=== PATIENT | female | born 1955 | race Caucasian/White ===

== ENCOUNTER → 2017-06-26 | Outpatient (CLI) | payer BC ==
[~2017-06-26] VITALS: Ht 162.6 cm; Wt 113.2 kg
[~2017-06-26] MED LIST: ACTOS45 MG PO; AMBIEN10 MG PO; CEFDINIR300 MG PO; CODEINE SULFATE30 MG PO; CYANOCOBAL1000 MCG/1 IM; EFFEXOR XR75 M1 PO; EFFEXOR XR75 M2 PO; IBUPROFEN200 M1 PO; KLOR-CON20 MEQ PO; LASIX40 M1 PO; METFORMIN500 MG PO; PEPCID 20MG TAB20 MG PO; PRILOSEC 20MG20 MG PO; QUINAPRIL40 MG PO; SLOW-MAG 6464 MG/TAB PO; SYNTHROID0.05 MG PO; TUSSIONEX PENNKI5 ML PO
[2017-06-26 09:53] LABS: EOS # 0.2 (0.04-0.40); EOS % 2.3 % (1.0-5.0); HEMATOCRIT 30.3 % (37.0-47.0); HEMOGLOBIN 8.8 g/dL (12.5-16.0); LYMPH# 2.4 (1.50-4.00); MEAN CELL VOLUME 79 fl (78-100); MEAN PLATELET VOLUME 11.7 fl (7.4-10.4); MONO # 0.4 (0.20-0.80); NEU # 5.1 (1.40-6.50); PLATELET COUNT 291 K/mm3 (130-400); RED BLOOD COUNT 3.83 M/mm3 (4.10-5.30); RED CELL DISTRIBUTION WIDTH 17.4 % (11.5-14.5); WHITE BLOOD COUNT 8.1 K/mm3 (4.8-10.8)
[2017-06-26 10:06] LABS: ALBUMIN 3.5 g/dL (3.5-5.0); BUN/CREATININE RATIO 16.7 (6.0-26.0); MEAN CORPUSCULAR HEMOGLOBIN 23 pg (27-31); MEAN CORPUSCULAR HGB CONC 29 g/dL (33-37); POTASSIUM 3.7 mmol/L (3.6-5.0); TOTAL BILIRUBIN 0.5 mg/dL (0.2-1.3); TOTAL PROTEIN 6.5 g/dL (6.3-8.2)
[2017-06-26 10:15] LABS: URINE APPEARANCE HAZY; URINE BILIRUBIN NEGATIVE (NEGATIVE); URINE BLOOD NEGATIVE (NEGATIVE); URINE COLOR YELLOW; URINE GLUCOSE NEGATIVE (NEGATIVE); URINE KETONE NEGATIVE (NEGATIVE); URINE LEUKOCYTE ESTERASE 1+ (NEGATIVE); URINE NITRATE NEGATIVE (NEGATIVE); URINE PROTEIN(semi-quant) NEGATIVE (NEGATIVE); URINE UROBILINOGEN NORMAL (NORMAL)
[2017-06-26 10:57] LABS: ERYTHROCYTE SEDIMENTATION RATE 39 mm/hr (0-30)
[2017-06-26 11:20] VITALS: BP 148/84
== END ==
LOC: AMSURD 09:16
PROVIDERS: Internal Medicine
DX: Z00.00 Encounter for general adult medical examination without abnormal findings (principal); D50.9 Iron deficiency anemia, unspecified; E53.8 Deficiency of other specified B group vitamins

== ENCOUNTER → 2017-09-18 | Outpatient (CLI) | payer BC ==
[2017-06-26 11:20] VITALS: BP 148/84
[2017-09-18 13:32] LABS: EOS # 0.1 (0.04-0.40); EOS % 1.6 % (1.0-5.0); HEMATOCRIT 31.1 % (37.0-47.0); HEMOGLOBIN 9.2 g/dL (12.5-16.0); LYMPH# 2.6 (1.50-4.00); MEAN CELL VOLUME 82 fl (78-100); MEAN CORPUSCULAR HGB CONC 30 g/dL (33-37); MEAN PLATELET VOLUME 11.2 fl (7.4-10.4); MONO # 0.4 (0.20-0.80); NEU # 4.6 (1.40-6.50); PLATELET COUNT 317 K/mm3 (130-400); RED BLOOD COUNT 3.79 M/mm3 (4.10-5.30); RED CELL DISTRIBUTION WIDTH 17.9 % (11.5-14.5); WHITE BLOOD COUNT 7.7 K/mm3 (4.8-10.8)
[2017-09-18 13:42] LABS: ALBUMIN 3.6 g/dL (3.5-5.0); BUN/CREATININE RATIO 9.6 (6.0-26.0); CALCIUM 9.1 mg/dL (8.4-10.2); TOTAL BILIRUBIN 0.6 mg/dL (0.2-1.3); TOTAL PROTEIN 6.6 g/dL (6.3-8.2)
[2017-09-18 14:00] LABS: MEAN CORPUSCULAR HEMOGLOBIN 24 pg (27-31)
[2017-09-18 14:45] LABS: ERYTHROCYTE SEDIMENTATION RATE 48 mm/hr (0-30)
[2017-09-18 19:35] LABS: URINE APPEARANCE CLEAR; URINE BILIRUBIN NEGATIVE (NEGATIVE); URINE BLOOD NEGATIVE (NEGATIVE); URINE COLOR YELLOW; URINE GLUCOSE NEGATIVE (NEGATIVE); URINE KETONE NEGATIVE (NEGATIVE); URINE LEUKOCYTE ESTERASE NEGATIVE (NEGATIVE); URINE NITRATE NEGATIVE (NEGATIVE); URINE PROTEIN(semi-quant) TRACE mg/dL (NEGATIVE); URINE UROBILINOGEN NORMAL (NORMAL)
[2017-09-19 18:34] LABS: CREATININE OTHER SOURCE 21 mg/dL (())
== END ==
LOC: LAB 12:58
PROVIDERS: Internal Medicine
DX: Z00.00 Encounter for general adult medical examination without abnormal findings (principal); E53.8 Deficiency of other specified B group vitamins; D50.9 Iron deficiency anemia, unspecified

== ENCOUNTER 2018-01-31 10:00 | Outpatient (RCR) | payer BC ==
[2017-06-26 11:20] VITALS: BP 148/84
== END 2018-02-05 | disposition home or self-care (01) ==
LOC: PT
DX: S82.851D Displaced trimalleolar fracture of right lower leg, subsequent encounter for closed fracture with routine healing (principal); S93.04XD Dislocation of right ankle joint, subsequent encounter

== ENCOUNTER 2018-02-23 09:30 | Outpatient (RCR) | payer BC ==
[2017-06-26 11:20] VITALS: BP 148/84
== END 2018-02-23 10:00 | disposition home or self-care (01) ==
LOC: PT 09:30
DX: S82.851D Displaced trimalleolar fracture of right lower leg, subsequent encounter for closed fracture with routine healing (principal); S93.04XD Dislocation of right ankle joint, subsequent encounter

== ENCOUNTER 2018-05-22 14:15 | Emergency (ER) | payer BC ==
[~2018-05-22] VITALS: Ht 162.6 cm; Wt 109.1 kg
[2018-05-22] MEDS ORDERED: POTASSIUM CHLO20 ME3 PO (15:00)
[2018-05-22] MEDS ORDERED: LEVOTHYROXINE0.05 MG PO (15:00)
[2018-05-22] MEDS ORDERED: FAMOTIDINE40 M1 PO (15:01)
[2018-05-22] MEDS ORDERED: OMEPRAZOLE40 MG PO (15:01)
[2018-05-22] MEDS ORDERED: FUROSEMIDE20 MG PO (15:03)
[2018-05-22] MEDS ORDERED: GLIMEPIRIDE4 MG PO (15:03)
[2018-05-22 15:54] LABS: CALCIUM 9.1 mg/dL (8.4-10.2); POTASSIUM 4.8 mmol/L (3.6-5.0)
[2018-05-22 16:07] LABS: EOS # 0.1 (0.04-0.40); EOS % 0.9 % (1.0-5.0); HEMATOCRIT 34.7 % (37.0-47.0); HEMOGLOBIN 11.1 g/dL (12.5-16.0); LYMPH# 2.4 (1.50-4.00); MEAN CELL VOLUME 84 fl (78-100); MEAN CORPUSCULAR HEMOGLOBIN 27 pg (27-31); MEAN CORPUSCULAR HGB CONC 32 g/dL (33-37); MONO # 0.8 (0.20-0.80); PLATELET COUNT 199 K/mm3 (130-400); RED BLOOD COUNT 4.11 M/mm3 (4.10-5.30); RED CELL DISTRIBUTION WIDTH 16.1 % (11.5-14.5); WHITE BLOOD COUNT 15.9 K/mm3 (4.8-10.8)
[2018-05-22 16:12] LABS: NEU # 12.5 (1.40-6.50)
[2018-05-22 17:03] VITALS: BP 125/99
== END 2018-05-22 17:21 | disposition home or self-care (01) ==
LOC: ED 14:15
PROVIDERS: Nurse Practitioner Family
DX: L02.31 Cutaneous abscess of buttock (principal); L03.317 Cellulitis of buttock; E11.42 Type 2 diabetes mellitus with diabetic polyneuropathy; I10 Essential (primary) hypertension; Z79.84 Long term (current) use of oral hypoglycemic drugs; Z79.899 Other long term (current) drug therapy; Z88.5 Allergy status to narcotic agent; Z88.0 Allergy status to penicillin; Z88.2 Allergy status to sulfonamides

== ENCOUNTER → 2018-06-21 | Outpatient (CLI) | payer BC ==
[2018-05-22 17:03] VITALS: BP 125/99
[~2018-06-21] MED LIST changes: +FAMOTIDINE40 M1 PO; +FUROSEMIDE20 MG PO; +GLIMEPIRIDE4 MG PO; +LEVOTHYROXINE0.05 MG PO; +OMEPRAZOLE40 MG PO; +POTASSIUM CHLO20 ME3 PO
[2018-06-21 11:47] LABS: URINE APPEARANCE HAZY; URINE BILIRUBIN NEGATIVE (NEGATIVE); URINE BLOOD NEGATIVE (NEGATIVE); URINE COLOR YELLOW; URINE GLUCOSE NEGATIVE (NEGATIVE); URINE KETONE NEGATIVE (NEGATIVE); URINE LEUKOCYTE ESTERASE 1+ (NEGATIVE); URINE NITRATE NEGATIVE (NEGATIVE); URINE PROTEIN(semi-quant) TRACE mg/dL (NEGATIVE); URINE UROBILINOGEN NORMAL (NORMAL)
[2018-06-21 11:48] LABS: URINE MUCUS PRESENT (NOT PRESENT)
== END ==
LOC: LAB 11:26
PROVIDERS: Nurse Practitioner
DX: R30.0 Dysuria (principal); N30.00 Acute cystitis without hematuria

== ENCOUNTER → 2018-07-13 | Outpatient (CLI) | payer BC ==
[~2018-07-13] VITALS: Ht 162.6 cm; Wt 101.4 kg
[~2018-07-13] MED LIST changes: +ACCUPRIL 40MG T40 MG PO; +PROAIR HFA0.09 MG/AC IH; +TRAMADOL 50 MG TAB PO; +VICTOZA 3-0.6 MG/0.1 SQ; +ZOFRAN4 M2 PO
[2018-07-13 15:18] VITALS: BP 144/85
[2018-07-13 17:47] VITALS: BP 142/83
== END ==
LOC: AMSURD 14:31
DX: R10.84 Generalized abdominal pain (principal); R19.7 Diarrhea, unspecified; E86.0 Dehydration
CPT/HCPCS: J7030

== ENCOUNTER → 2018-10-15 | Outpatient (CLI) | payer BC ==
[2018-07-13 17:47] VITALS: BP 142/83
[2018-10-15 10:27] LABS: EOS # 0.1 (0.04-0.40); EOS % 1.2 % (1.0-5.0); HEMATOCRIT 36.3 % (37.0-47.0); HEMOGLOBIN 11.7 g/dL (12.5-16.0); LYMPH# 3.3 (1.50-4.00); MEAN CELL VOLUME 87 fl (78-100); MEAN CORPUSCULAR HEMOGLOBIN 28 pg (27-31); MEAN CORPUSCULAR HGB CONC 32 g/dL (33-37); MONO # 0.4 (0.20-0.80); NEU # 4.6 (1.40-6.50); PLATELET COUNT 170 K/mm3 (130-400); RED BLOOD COUNT 4.17 M/mm3 (4.10-5.30); RED CELL DISTRIBUTION WIDTH 14.3 % (11.5-14.5); WHITE BLOOD COUNT 8.5 K/mm3 (4.8-10.8)
[2018-10-15 10:39] LABS: ALBUMIN 3.9 g/dL (3.5-5.0); CALCIUM 9.5 mg/dL (8.4-10.2); POTASSIUM 3.9 mmol/L (3.6-5.0); TOTAL BILIRUBIN 0.3 mg/dL (0.2-1.3); TOTAL PROTEIN 6.7 g/dL (6.3-8.2)
[2018-10-15 11:16] LABS: MEAN PLATELET VOLUME 13.1 fl (7.4-10.4)
[2018-10-15 11:50] LABS: ERYTHROCYTE SEDIMENTATION RATE 17 mm/hr (0-30)
== END ==
LOC: LAB 10:05
PROVIDERS: Internal Medicine
DX: E11.9 Type 2 diabetes mellitus without complications (principal); I10 Essential (primary) hypertension; D50.9 Iron deficiency anemia, unspecified; E53.8 Deficiency of other specified B group vitamins; R19.7 Diarrhea, unspecified

== ENCOUNTER → 2019-01-07 | Outpatient (CLI) | payer BC ==
[2018-07-13 17:47] VITALS: BP 142/83
== END ==
LOC: LAB 09:58
DX: D50.9 Iron deficiency anemia, unspecified (principal); E53.8 Deficiency of other specified B group vitamins; R19.7 Diarrhea, unspecified; I10 Essential (primary) hypertension; E11.9 Type 2 diabetes mellitus without complications

== ENCOUNTER → 2019-04-24 | Outpatient (CLI) | payer BC ==
[2018-07-13 17:47] VITALS: BP 142/83
[2019-04-24 11:37] LABS: POTASSIUM 4.4 mmol/L (3.5-5.1)
[2019-04-24 11:38] LABS: CALCIUM 9.4 mg/dL (8.3-10.5)
[2019-04-24 11:40] LABS: TOTAL PROTEIN 7.7 g/dL (6.2-8.1)
[2019-04-24 11:42] LABS: TOTAL BILIRUBIN 0.3 mg/dL (0.2-1.2)
[2019-04-24 12:22] LABS: EOS # 0.1 (0.04-0.40); EOS % 1.2 % (1.0-5.0); HEMATOCRIT 37.7 % (37.0-47.0); HEMOGLOBIN 11.8 g/dL (12.5-16.0); LYMPH# 4.1 (1.50-4.00); MEAN CELL VOLUME 88 fl (78-100); MEAN CORPUSCULAR HEMOGLOBIN 28 pg (27-31); MEAN CORPUSCULAR HGB CONC 31 g/dL (33-37); MONO # 0.6 (0.20-0.80); NEU # 5.9 (1.40-6.50); PLATELET COUNT 265 K/mm3 (130-400); RED BLOOD COUNT 4.27 M/mm3 (4.10-5.30); RED CELL DISTRIBUTION WIDTH 14.9 % (11.5-14.5); WHITE BLOOD COUNT 10.7 K/mm3 (4.8-10.8)
== END ==
LOC: LAB 11:05
PROVIDERS: Internal Medicine
DX: E11.9 Type 2 diabetes mellitus without complications (principal); D50.9 Iron deficiency anemia, unspecified; I10 Essential (primary) hypertension; E53.8 Deficiency of other specified B group vitamins; R19.7 Diarrhea, unspecified

== ENCOUNTER 2019-08-01 15:50 | Emergency (ER) | payer BC ==
[2019-08-01] MEDS ORDERED: PIOGLITAZONE HC15 MG PO (16:15)
[2019-08-01] MEDS ORDERED: NATURAL IRON65 MG PO (16:16)
[2019-08-01] MEDS ORDERED: CYANOCOBAL1000 MCG/1 IM (16:16)
[2019-08-01] MEDS ORDERED: ACIDOPHILUS1 EACH PO (16:19)
[2019-08-01] MEDS ORDERED: MULTIVITAMIN1 SGL PO (16:20)
[2019-08-01] MEDS ORDERED: METFORMIN ER500 MG PO (16:20)
[2019-08-01] MEDS ORDERED: MAGNESIUM400 MG PO (16:20)
[2019-08-01] MEDS ORDERED: BACTRIM DS 8001 TAB PO (16:21)
[2019-08-01] MEDS ORDERED: QUINAPRIL HCL40 MG PO (16:21)
[2019-08-01 16:41] LABS: HEMATOCRIT 35.8 % (37.0-47.0); HEMOGLOBIN 11.3 g/dL (12.5-16.0); MEAN CELL VOLUME 85 fl (78-100); MEAN CORPUSCULAR HEMOGLOBIN 27 pg (27-31); MEAN CORPUSCULAR HGB CONC 32 g/dL (33-37); PLATELET COUNT 252 K/mm3 (130-400); RED BLOOD COUNT 4.21 M/mm3 (4.10-5.30); RED CELL DISTRIBUTION WIDTH 14.5 % (11.5-14.5); WHITE BLOOD COUNT 19.2 K/mm3 (4.8-10.8)
[2019-08-01 16:42] LABS: MEAN PLATELET VOLUME 12.1 fl (7.4-10.4)
[2019-08-01 16:44] LABS: ALBUMIN 3.9 g/dL (3.4-4.8); POTASSIUM 3.4 mmol/L (3.5-5.1)
[2019-08-01 16:45] LABS: CALCIUM 10.3 mg/dL (8.3-10.5)
[2019-08-01 16:47] LABS: TOTAL PROTEIN 7.7 g/dL (6.2-8.1)
[2019-08-01 16:49] LABS: TOTAL BILIRUBIN 0.5 mg/dL (0.2-1.2)
[2019-08-01 17:42] LABS: LYMPHOCYTE 16 % (20-51); MONOCYTE 5 % (3-10); NEUTROPHILS 79 % (42-75)
[2019-08-01 17:58] VITALS: BP 167/81
== END 2019-08-01 17:50 | disposition home or self-care (01) ==
LOC: ED 15:50
PROVIDERS: Nurse Practitioner Family
DX: E11.65 Type 2 diabetes mellitus with hyperglycemia (principal); E86.0 Dehydration; L02.212 Cutaneous abscess of back [any part, except buttock and flank]; E11.40 Type 2 diabetes mellitus with diabetic neuropathy, unspecified; I10 Essential (primary) hypertension; F32.9 Major depressive disorder, single episode, unspecified; K21.9 Gastro-esophageal reflux disease without esophagitis; Z79.84 Long term (current) use of oral hypoglycemic drugs; Z98.890 Other specified postprocedural states
CPT/HCPCS: J2405; J3010; J3370; J7030; J7050

== ENCOUNTER 2019-08-14 18:03 | Outpatient (RCR) | payer BC ==
[2019-08-06 15:30] VITALS: BP 160/95
[2019-08-07 09:42] VITALS: BP 127/68
[2019-08-07 20:17] VITALS: BP 136/54
--- NOTE | 2019-08-08 09:00 | NUR ---
calls and reports that is not feeling well and will not be in this am for her drsg change. Pt plans to be in tonight.
--- NOTE | 2019-08-08 19:20 | NUR ---
Pt's old drsg saturated w/ NS and then removed per pt's request. Noted small amount of red drng on removed drsg but no active bleeding of wound bed. No odor from wound.Wound bed noted to be pink w/ film appearance over top half of wound bed and has some small black areas (about size of a pencil head) at 12 oclock, 2 oclock and 5 oclock specifically and one about 1 cm below 12 oclock. Most of the blackened areas are at the edge of the wound bed. No tunneling noted at around the perimeter but pt does c/o much tenderness at those spots where blackness noted. Pt has appt w/ wound clinic next week and appt w/ Dr Fall also. Pt encouraged to make her wound drsg appt a priority as she missed this am. Pt also encouraged to take pain pill 1 hours prior to drsg change and understanding verbalized by patient. Wound packed w/ wet to dry drsg as ordered - pt c/o some discomfort, mainly with wound packing at edges. Drsg secured w/ hypafix.
[2019-08-08 19:30] VITALS: BP 124/67
--- NOTE | 2019-08-08 19:35 | NUR ---
Pt requested a picture of the wound taken for reference. Consent for photgraphing signed and pictures of wound obtained for medical records.
--- NOTE | 2019-08-09 09:30 | NUR ---
PT TO DR CHENG OFFICE FOR AM DRESSING CHANGE
[2019-08-09 19:21] VITALS: BP 158/82
--- NOTE | 2019-08-09 19:24 | NUR ---
DRESSING CHANGE COMPLETE TO MID BACK. WOUND BED BEEFY RED WITH SOME SLOUGH ALSO NOTED MULTIPLE PINPOINT SMALL AREAS OF BLACKENED TISSUE. REPACKED IN WET TO DRY FASHION. PT TOLERATES WELL.
[2019-08-10 09:51] VITALS: BP 147/83
[2019-08-10 19:42] VITALS: BP 150/98
[2019-08-11 09:35] VITALS: BP 165/99
[2019-08-11 19:46] VITALS: BP 163/61
[2019-08-12 09:51] VITALS: BP 122/93
--- NOTE | 2019-08-12 09:51 | NUR ---
NOTIFIED OF WOUND STATUS PER REQUEST
[2019-08-12 19:31] VITALS: BP 115/71
[2019-08-13 08:15] VITALS: BP 155/100
[2019-08-13 18:11] VITALS: BP 132/77
[~2019-08-14] VITALS: Ht 162.6 cm; Wt 101.4 kg
[~2019-08-14 18:03] MED LIST changes: +ACIDOPHILUS1 EACH PO; +BACTRIM DS 8001 TAB PO; +MAGNESIUM400 MG PO; +METFORMIN ER500 MG PO; +MULTIVITAMIN1 SGL PO; +NATURAL IRON65 MG PO; +PIOGLITAZONE HC15 MG PO; +QUINAPRIL HCL40 MG PO
[2019-08-14 18:10] VITALS: BP 126/42
== END 2019-08-15 09:38 | disposition still patient (30) ==
LOC: AMSURD 18:03
DX: Z48.00 Encounter for change or removal of nonsurgical wound dressing (principal)

== ENCOUNTER → 2020-12-16 | Outpatient (CLI) | payer BC ==
[~2020-12-16] MED LIST changes: +ADVAIR DISKUS1 DS2 IH; +CRESTOR20 MG PO; +GABAPENTIN100 MG PO; +LEVEMIR FLEX100 U/ML SQ; +MAGOX 400241.3 MG PO; +NOVOLOG FLEX100 U/ML SQ
[2020-12-16 19:01] LABS: EOS # 0.1 (0.04-0.40); EOS % 0.6 % (1.0-5.0); HEMATOCRIT 41.1 % (37.0-47.0); HEMOGLOBIN 13.1 g/dL (12.5-16.0); LYMPH# 3.9 (1.50-4.00); MEAN CELL VOLUME 81 fl (78-100); MEAN CORPUSCULAR HEMOGLOBIN 26 pg (27-31); MEAN CORPUSCULAR HGB CONC 32 g/dL (33-37); MONO # 0.6 (0.20-0.80); NEU # 6.9 (1.40-6.50); PLATELET COUNT 245 K/mm3 (130-400); RED BLOOD COUNT 5.05 M/mm3 (4.10-5.30); RED CELL DISTRIBUTION WIDTH 14.8 % (11.5-14.5); WHITE BLOOD COUNT 11.5 K/mm3 (4.8-10.8)
[2020-12-16 19:09] LABS: CALCIUM 9.2 mg/dL (8.3-10.5)
[2020-12-16 19:10] LABS: TOTAL PROTEIN 7.2 g/dL (6.2-8.1)
[2020-12-16 19:12] LABS: TOTAL BILIRUBIN 0.4 mg/dL (0.2-1.2)
[2020-12-16 19:23] LABS: POTASSIUM 3.2 mmol/L (3.5-5.1)
[2020-12-16 19:38] LABS: MEAN PLATELET VOLUME 12.4 fl (7.4-10.4)
[2020-12-16 20:31] LABS: ERYTHROCYTE SEDIMENTATION RATE 38 mm/hr (0-30)
== END ==
LOC: LAB 18:41
PROVIDERS: Internal Medicine
DX: Z00.00 Encounter for general adult medical examination without abnormal findings (principal)

== ENCOUNTER 2020-12-18 15:25 | Observation (INO) | payer BC ==
[~2020-12-18 15:25] MED LIST changes: -ADVAIR DISKUS1 DS2 IH; -CRESTOR20 MG PO; -GABAPENTIN100 MG PO; -LEVEMIR FLEX100 U/ML SQ; -MAGOX 400241.3 MG PO; -NOVOLOG FLEX100 U/ML SQ
[2020-12-18 16:51] LABS: EOS # 0.1 (0.04-0.40); EOS % 1.6 % (1.0-5.0); HEMATOCRIT 38.2 % (37.0-47.0); HEMOGLOBIN 12.4 g/dL (12.5-16.0); LYMPH# 2.2 (1.50-4.00); MEAN CELL VOLUME 80 fl (78-100); MEAN CORPUSCULAR HEMOGLOBIN 26 pg (27-31); MEAN CORPUSCULAR HGB CONC 33 g/dL (33-37); MONO # 0.3 (0.20-0.80); NEU # 4.3 (1.40-6.50); PLATELET COUNT 176 K/mm3 (130-400); RED BLOOD COUNT 4.76 M/mm3 (4.10-5.30); RED CELL DISTRIBUTION WIDTH 14.6 % (11.5-14.5); WHITE BLOOD COUNT 7.1 K/mm3 (4.8-10.8)
[2020-12-18 16:59] LABS: CALCIUM 8.7 mg/dL (8.3-10.5)
[2020-12-18 17:02] LABS: MEAN PLATELET VOLUME 12.3 fl (7.4-10.4)
[2020-12-18 17:07] VITALS: BP 161/96
[2020-12-18] MEDS ORDERED: ADVAIR DISKUS1 DS2 IH (17:17)
[2020-12-18 18:02] VITALS: BP 161/96
[2020-12-18 21:42] VITALS: BP 111/76
[2020-12-18 22:52] LABS: POTASSIUM 3.2 mmol/L (3.5-5.1)
[2020-12-19 02:33] VITALS: BP 127/70
[2020-12-19 05:49] VITALS: BP 103/66
[2020-12-19 06:41] LABS: EOS # 0.2 (0.04-0.40); EOS % 2.6 % (1.0-5.0); HEMATOCRIT 35.8 % (37.0-47.0); HEMOGLOBIN 11.5 g/dL (12.5-16.0); LYMPH# 3.5 (1.50-4.00); MEAN CELL VOLUME 82 fl (78-100); MEAN CORPUSCULAR HEMOGLOBIN 26 pg (27-31); MEAN CORPUSCULAR HGB CONC 32 g/dL (33-37); MONO # 0.4 (0.20-0.80); NEU # 2.5 (1.40-6.50); PLATELET COUNT 181 K/mm3 (130-400); RED BLOOD COUNT 4.38 M/mm3 (4.10-5.30); RED CELL DISTRIBUTION WIDTH 14.5 % (11.5-14.5); WHITE BLOOD COUNT 6.5 K/mm3 (4.8-10.8)
[2020-12-19 06:45] LABS: CALCIUM 8.1 mg/dL (8.3-10.5)
[2020-12-19 06:54] LABS: POTASSIUM 2.9 mmol/L (3.5-5.1)
[2020-12-19 09:52] VITALS: BP 128/85
[2020-12-19 14:01] VITALS: BP 122/78
[2020-12-19 17:39] VITALS: BP 136/72
[2020-12-19 21:38] VITALS: BP 137/82
[2020-12-19 21:47] LABS: POTASSIUM 4.3 mmol/L (3.5-5.1)
[2020-12-19 21:54] LABS: MAGNESIUM 1.43 mg/dL (1.60-2.60)
[2020-12-20 02:16] VITALS: BP 130/79
[2020-12-20 05:49] VITALS: BP 104/70
[2020-12-20] MEDS ORDERED: NOVOLOG FLEX100 U/ML SQ (08:48)
[2020-12-20] MEDS ORDERED: LEVEMIR FLEX100 U/ML SQ (08:48)
[2020-12-20] MEDS ORDERED: POTASSIUM CHLO20 ME3 PO (08:48)
[2020-12-20] MEDS ORDERED: MAGOX 400241.3 MG PO (08:50)
[2020-12-20 10:12] VITALS: BP 105/69
[2020-12-23 20:42] LABS: CORTISOL,URINE <2.4 mcg/24 h (3.5-45)
[2021-01-22] MEDS ORDERED: NOVOLOG FLEX100 U/ML SQ (11:00)
[2021-01-22] MEDS ORDERED: LEVEMIR FLEX100 U/ML SQ (11:01)
[2021-01-22] MEDS ORDERED: CRESTOR20 MG PO (11:03)
== END 2020-12-20 11:09 | disposition home or self-care (01) ==
LOC: MED/SURG 15:25
PROVIDERS: Family Medicine; ADMIT Physician Assistant
DX: E11.65 Type 2 diabetes mellitus with hyperglycemia (principal); E87.6 Hypokalemia; E87.1 Hypo-osmolality and hyponatremia; B37.3 Candidiasis of vulva and vagina; E86.0 Dehydration; I10 Essential (primary) hypertension; F32.9 Major depressive disorder, single episode, unspecified; K21.9 Gastro-esophageal reflux disease without esophagitis; Z79.899 Other long term (current) drug therapy; Z79.84 Long term (current) use of oral hypoglycemic drugs
CPT/HCPCS: G0378; G0379; J1650; J1815; J1885; J3480; J7030

== ENCOUNTER → 2020-12-18 | Outpatient (CLI) | payer BC ==
[2020-12-18 13:02] LABS: URINE APPEARANCE CLEAR; URINE BILIRUBIN NEGATIVE (NEGATIVE); URINE BLOOD NEGATIVE (NEGATIVE); URINE COLOR YELLOW; URINE KETONE NEGATIVE (NEGATIVE); URINE LEUKOCYTE ESTERASE TRACE (NEGATIVE); URINE NITRATE NEGATIVE (NEGATIVE); URINE PROTEIN(semi-quant) NEGATIVE (NEGATIVE); URINE UROBILINOGEN NORMAL (NORMAL)
== END ==
LOC: LAB 12:35
PROVIDERS: Internal Medicine
DX: Z00.00 Encounter for general adult medical examination without abnormal findings (principal); Z12.11 Encounter for screening for malignant neoplasm of colon; N39.0 Urinary tract infection, site not specified

== ENCOUNTER → 2020-12-25 | Outpatient (CLI) | payer BC ==
[2020-12-20 10:12] VITALS: BP 105/69
[~2020-12-25] MED LIST changes: +ADVAIR DISKUS1 DS2 IH; +CRESTOR20 MG PO; +GABAPENTIN100 MG PO; +LEVEMIR FLEX100 U/ML SQ; +MAGOX 400241.3 MG PO; +NOVOLOG FLEX100 U/ML SQ
[2020-12-25 15:01] LABS: ALBUMIN 3.7 g/dL (3.4-4.8)
[2020-12-25 15:02] LABS: POTASSIUM 4.8 mmol/L (3.5-5.1)
[2020-12-25 15:03] LABS: CALCIUM 9.7 mg/dL (8.3-10.5)
[2020-12-25 15:04] LABS: TOTAL PROTEIN 6.8 g/dL (6.2-8.1)
[2020-12-25 15:06] LABS: TOTAL BILIRUBIN 0.4 mg/dL (0.2-1.2)
[2020-12-25 15:10] LABS: MAGNESIUM 1.9 mg/dL (1.60-2.60)
[2020-12-25 18:22] LABS: URINE APPEARANCE CLEAR; URINE BILIRUBIN NEGATIVE (NEGATIVE); URINE COLOR YELLOW; URINE GLUCOSE 50 mg/dL mg/dL (NEGATIVE); URINE KETONE NEGATIVE (NEGATIVE); URINE PROTEIN(semi-quant) NEGATIVE (NEGATIVE)
[2020-12-25 18:23] LABS: URINE BLOOD TRACE (NEGATIVE); URINE LEUKOCYTE ESTERASE 1+ (NEGATIVE); URINE NITRATE NEGATIVE (NEGATIVE); URINE UROBILINOGEN NORMAL (NORMAL)
== END ==
LOC: LAB 14:15
PROVIDERS: Internal Medicine
DX: I10 Essential (primary) hypertension (principal)

== ENCOUNTER → 2021-01-22 | Outpatient (CLI) | payer BC ==
[2021-01-22 10:25] VITALS: BP 157/85
[2021-01-22 10:31] VITALS: BP 157/85
[2021-01-22 11:06] LABS: ALBUMIN 4.7 g/dL (3.4-4.8); POTASSIUM 4.4 mmol/L (3.5-5.1)
[2021-01-22 11:07] LABS: CALCIUM 9.6 mg/dL (8.3-10.5)
[2021-01-22 11:10] LABS: TOTAL BILIRUBIN 0.8 mg/dL (0.2-1.2)
--- NOTE | 2021-01-22 11:16 | NUR ---
LAB RESULTS CALLED TO Dalton FERNANDEZ
[2021-01-22 11:20] LABS: HEMATOCRIT 38.3 % (37.0-47.0); HEMOGLOBIN 13.4 g/dL (12.5-16.0); MEAN PLATELET VOLUME 11.9 fl (7.4-10.4); RED BLOOD COUNT 5.03 M/mm3 (4.10-5.30); WHITE BLOOD COUNT 10.8 K/mm3 (4.8-10.8)
--- NOTE | 2021-01-22 11:47 | NUR ---
WILL TRANSFER TO [facility] ICU VIA AMBULANCE.
--- NOTE | 2021-01-22 11:49 | NUR ---
[facility] CALL[facility] TO INFORM THEY DO NOT HAVE ICU BEDS AVAILABLE AND WILL NOT BE ABLE TO ACCEPT PATIENT. BHARATI SMYTH NOTIFIED.
--- NOTE | 2021-01-22 12:13 | NUR ---
MULTIPLE WARM BLANKETS PROVIDED TO PATIENT SHE COMPLAINS THE ROOM IS COLD. THERMOSTAT ALSO ADJUSTED.
[2021-01-22 12:15] LABS: URINE APPEARANCE CLEAR; URINE BILIRUBIN NEGATIVE (NEGATIVE); URINE BLOOD NEGATIVE (NEGATIVE); URINE COLOR YELLOW; URINE GLUCOSE NEGATIVE (NEGATIVE); URINE KETONE NEGATIVE (NEGATIVE); URINE LEUKOCYTE ESTERASE NEGATIVE (NEGATIVE); URINE NITRATE NEGATIVE (NEGATIVE); URINE PROTEIN(semi-quant) TRACE mg/dL (NEGATIVE); URINE UROBILINOGEN NORMAL (NORMAL); URINE WBC 0-1 /hpf (0-3)
--- NOTE | 2021-01-22 13:06 | NUR ---
AMBULATORY TO BATHROOM AND BACK TO ER ROOM 1. GAIT UNSTEADY. NAUSEA RESOLVED.
--- NOTE | 2021-01-22 13:13 | NUR ---
PATIENT TO TRANSFER TO [facility] ROOM 612.
--- NOTE | 2021-01-22 13:35 | NUR ---
LEAVES FACILITY PER EMS AT THIS TIME.
== END ==
LOC: AMSURD 10:08
PROVIDERS: Nurse Practitioner
DX: E87.1 Hypo-osmolality and hyponatremia (principal); Z20.822 Contact with and (suspected) exposure to COVID-19
CPT/HCPCS: J2405; J7030

== ENCOUNTER → 2021-02-03 | Outpatient (CLI) | payer BC ==
[2021-01-22 10:31] VITALS: BP 157/85
[2021-02-03 15:53] LABS: POTASSIUM 4.4 mmol/L (3.5-5.1)
[2021-02-03 15:54] LABS: CALCIUM 9.5 mg/dL (8.3-10.5)
== END ==
LOC: LAB 15:29
DX: Z01.89 Encounter for other specified special examinations (principal)

== ENCOUNTER → 2021-02-18 | Outpatient (CLI) | payer BC ==
[2021-01-22 10:31] VITALS: BP 157/85
[2021-02-18 15:24] LABS: POTASSIUM 4.4 mmol/L (3.5-5.1)
[2021-02-18 15:25] LABS: CALCIUM 9.3 mg/dL (8.3-10.5)
== END ==
LOC: LAB 14:59
PROVIDERS: Internal Medicine
DX: E22.2 Syndrome of inappropriate secretion of antidiuretic hormone (principal)

== ENCOUNTER 2021-04-06 16:55 | Emergency (ER) | payer BC ==
[~2021-04-06 16:55] MED LIST changes: -GABAPENTIN100 MG PO
[2021-04-06 18:05] LABS: BASO # 0.04 (0.02-0.10); EOS # 0.13 (0.04-0.40); EOS % 1.4 % (1.0-5.0); HEMATOCRIT 39.5 % (37.0-47.0); HEMOGLOBIN 12.3 g/dL (12.5-16.0); LYMPH# 3.39 (1.50-4.00); MEAN CELL VOLUME 88 fl (78-100); MEAN CORPUSCULAR HEMOGLOBIN 28 pg (27-31); MEAN CORPUSCULAR HGB CONC 31 g/dL (33-37); MEAN PLATELET VOLUME 12.1 fl (7.4-10.4); MONO # 0.41 (0.20-0.80); NEU # 5.53 (1.40-6.50); PLATELET COUNT 247 K/mm3 (130-400); RED BLOOD COUNT 4.48 M/mm3 (4.10-5.30); RED CELL DISTRIBUTION WIDTH 13.5 % (11.5-14.5); WHITE BLOOD COUNT 9.5 K/mm3 (4.8-10.8)
[2021-04-06] MEDS ORDERED: GABAPENTIN100 MG PO (18:10)
[2021-04-06 18:15] LABS: ALBUMIN 4.4 g/dL (3.4-4.8)
[2021-04-06 18:16] LABS: POTASSIUM 3.8 mmol/L (3.5-5.1); SODIUM 142 mmol/L (136-145)
[2021-04-06 18:17] LABS: CALCIUM 10.1 mg/dL (8.3-10.5)
[2021-04-06 18:18] LABS: GLUCOSE 118 mg/dL (65-105); TOTAL PROTEIN 7.8 g/dL (6.2-8.1)
[2021-04-06 18:19] LABS: CARBON DIOXIDE 21 mmol/L (23-31)
[2021-04-06 18:20] LABS: TOTAL BILIRUBIN 0.3 mg/dL (0.2-1.2)
[2021-04-06 18:23] LABS: AST-SGOT 20 U/L (5-34)
[2021-04-06 18:25] LABS: ALT/SGPT 15 U/L (0-55); MAGNESIUM 1.97 mg/dL (1.60-2.60)
[2021-04-06 18:33] LABS: TROPONIN-I < 0.03 ng/mL (<0.030)
[2021-04-06 19:15] VITALS: BP 154/78
== END 2021-04-06 19:15 | disposition home or self-care (01) ==
LOC: ED 16:55
PROVIDERS: Physician Assistant
DX: E11.40 Type 2 diabetes mellitus with diabetic neuropathy, unspecified (principal); R07.2 Precordial pain; K21.9 Gastro-esophageal reflux disease without esophagitis; I10 Essential (primary) hypertension; J45.909 Unspecified asthma, uncomplicated; Z79.4 Long term (current) use of insulin; Z79.899 Other long term (current) drug therapy
CPT/HCPCS: J1885

== ENCOUNTER → 2021-04-29 | Outpatient (CLI) | payer BC ==
[~2021-04-29] MED LIST changes: +GABAPENTIN100 MG PO
[2021-04-29 12:39] LABS: BASO # 0.04 (0.02-0.10); EOS # 0.21 (0.04-0.40); EOS % 2.8 % (1.0-5.0); HEMATOCRIT 41.1 % (37.0-47.0); HEMOGLOBIN 12.6 g/dL (12.5-16.0); LYMPH# 2.97 (1.50-4.00); MEAN CELL VOLUME 88 fl (78-100); MEAN CORPUSCULAR HEMOGLOBIN 27 pg (27-31); MEAN CORPUSCULAR HGB CONC 31 g/dL (33-37); MEAN PLATELET VOLUME 11.8 fl (7.4-10.4); MONO # 0.35 (0.20-0.80); NEU # 3.94 (1.40-6.50); PLATELET COUNT 230 K/mm3 (130-400); RED BLOOD COUNT 4.69 M/mm3 (4.10-5.30); RED CELL DISTRIBUTION WIDTH 13.4 % (11.5-14.5); WHITE BLOOD COUNT 7.5 K/mm3 (4.8-10.8)
[2021-04-29 12:52] LABS: ALBUMIN 4.3 g/dL (3.4-4.8)
[2021-04-29 12:53] LABS: CALCIUM 10.3 mg/dL (8.3-10.5)
[2021-04-29 12:55] LABS: TOTAL PROTEIN 7.9 g/dL (6.2-8.1)
[2021-04-29 12:56] LABS: TOTAL BILIRUBIN 0.3 mg/dL (0.2-1.2)
[2021-05-03 14:04] LABS: .COPPER,S 1.19 mcg/mL (())
== END ==
LOC: LAB 12:21
PROVIDERS: Internal Medicine
DX: I10 Essential (primary) hypertension (principal); E11.9 Type 2 diabetes mellitus without complications; K90.9 Intestinal malabsorption, unspecified

== ENCOUNTER → 2021-05-21 | Outpatient (CLI) | payer BC ==
[2021-05-21 09:26] LABS: ALBUMIN 3.9 g/dL (3.4-4.8); POTASSIUM 4.5 mmol/L (3.5-5.1)
[2021-05-21 09:27] LABS: CALCIUM 9.7 mg/dL (8.3-10.5)
[2021-05-21 09:28] LABS: TOTAL PROTEIN 6.9 g/dL (6.2-8.1)
[2021-05-21 09:30] LABS: TOTAL BILIRUBIN 0.5 mg/dL (0.2-1.2)
== END ==
LOC: LAB 09:02
PROVIDERS: Internal Medicine
DX: E11.9 Type 2 diabetes mellitus without complications (principal)

== ENCOUNTER → 2021-06-17 | Outpatient (CLI) | payer BC ==
[2021-06-17 16:26] LABS: BASO # 0.03 K/mm3 (0.02-0.10); EOS # 0.06 K/mm3 (0.04-0.40); EOS % 0.8 % (1.0-5.0); HEMATOCRIT 39.9 % (37.0-47.0); HEMOGLOBIN 12.2 g/dL (12.5-16.0); LYMPH# 2.71 K/mm3 (1.50-4.00); MEAN CELL VOLUME 85 fl (78-100); MEAN CORPUSCULAR HEMOGLOBIN 26 pg (27-31); MEAN CORPUSCULAR HGB CONC 31 g/dL (33-37); MEAN PLATELET VOLUME 11.8 fl (7.4-10.4); MONO # 0.37 K/mm3 (0.20-0.80); NEU # 4.81 K/mm3 (1.40-6.50); PLATELET COUNT 250 K/mm3 (130-400); RED BLOOD COUNT 4.71 M/mm3 (4.10-5.30); RED CELL DISTRIBUTION WIDTH 14.4 % (11.5-14.5)
[2021-06-17 16:31] LABS: ALBUMIN 4.3 g/dL (3.4-4.8); POTASSIUM 3.5 mmol/L (3.5-5.1)
[2021-06-17 16:33] LABS: CALCIUM 10.3 mg/dL (8.3-10.5)
[2021-06-17 16:34] LABS: TOTAL PROTEIN 7.9 g/dL (6.2-8.1)
[2021-06-17 16:36] LABS: TOTAL BILIRUBIN 0.5 mg/dL (0.2-1.2)
[2021-06-17 16:56] LABS: URINE APPEARANCE HAZY; URINE COLOR YELLOW; URINE GLUCOSE NEGATIVE (NEGATIVE); URINE PROTEIN(semi-quant) TRACE mg/dL (NEGATIVE)
[2021-06-17 16:57] LABS: URINE BILIRUBIN NEGATIVE (NEGATIVE); URINE BLOOD NEGATIVE (NEGATIVE); URINE KETONE NEGATIVE (NEGATIVE); URINE LEUKOCYTE ESTERASE TRACE (NEGATIVE); URINE NITRATE NEGATIVE (NEGATIVE); URINE UROBILINOGEN NORMAL (NORMAL)
== END ==
LOC: LAB 16:06
PROVIDERS: Nurse Practitioner Family
DX: Z20.822 Contact with and (suspected) exposure to COVID-19 (principal)

== ENCOUNTER → 2021-08-02 | Outpatient (CLI) | payer BC ==
[2021-08-02 17:30] LABS: BASO # 0.05 K/mm3 (0.02-0.10); EOS # 0.11 K/mm3 (0.04-0.40); EOS % 1.1 % (1.0-5.0); HEMATOCRIT 37.1 % (37.0-47.0); HEMOGLOBIN 11.5 g/dL (12.5-16.0); LYMPH# 3.27 K/mm3 (1.50-4.00); MEAN CELL VOLUME 83 fl (78-100); MEAN CORPUSCULAR HEMOGLOBIN 26 pg (27-31); MEAN CORPUSCULAR HGB CONC 31 g/dL (33-37); MEAN PLATELET VOLUME 12.3 fl (7.4-10.4); MONO # 0.49 K/mm3 (0.20-0.80); NEU # 6.08 K/mm3 (1.40-6.50); PLATELET COUNT 190 K/mm3 (130-400); RED BLOOD COUNT 4.46 M/mm3 (4.10-5.30); RED CELL DISTRIBUTION WIDTH 14.5 % (11.5-14.5)
[2021-08-02 17:37] LABS: ALBUMIN 4.1 g/dL (3.4-4.8); POTASSIUM 3.9 mmol/L (3.5-5.1)
[2021-08-02 17:38] LABS: CALCIUM 9.2 mg/dL (8.3-10.5)
[2021-08-02 17:39] LABS: TOTAL PROTEIN 7.1 g/dL (6.2-8.1)
[2021-08-02 17:41] LABS: TOTAL BILIRUBIN 0.2 mg/dL (0.2-1.2)
== END ==
LOC: LAB 17:16
PROVIDERS: Internal Medicine
DX: E11.9 Type 2 diabetes mellitus without complications (principal)

== ENCOUNTER → 2021-12-14 | Outpatient (CLI) | payer BC | LOC: LAB 11:33 | DX: E11.9 Type 2 diabetes mellitus without complications (principal); K90.9 Intestinal malabsorption, unspecified; G62.9 Polyneuropathy, unspecified; E53.8 Deficiency of other specified B group vitamins; E61.1 Iron deficiency; S82.145A Nondisplaced bicondylar fracture of left tibia, initial encounter for closed fracture; S72.92XA Unspecified fracture of left femur, initial encounter for closed fracture ==

== ENCOUNTER 2023-12-19 09:17 | Emergency (ER) | payer BC ==
[~2023-12-19] VITALS: Ht 162.6 cm; Wt 94.5 kg
[2023-12-19] MEDS ORDERED: dilTIAZem 25 MG/5 ML VIAL IV ONE (09:45)
[2023-12-19 10:03] LABS: BASO # 0.05 K/mm3 (0.02-0.10); EOS # 0.15 K/mm3 (0.04-0.40); EOS % 1.9 % (1.0-5.0); HEMATOCRIT 37.9 % (37.0-47.0); HEMOGLOBIN 12.1 g/dL (12.5-16.0); LYMPH# 3.11 K/mm3 (1.50-4.00); MEAN CELL VOLUME 78 fl (78-100); MEAN CORPUSCULAR HEMOGLOBIN 25 pg (27-31); MEAN CORPUSCULAR HGB CONC 32 g/dL (33-37); MEAN PLATELET VOLUME 12.8 fl (7.4-10.4); MONO # 0.56 K/mm3 (0.20-0.80); NEU # 4.06 K/mm3 (1.40-6.50); RED BLOOD COUNT 4.86 M/mm3 (4.10-5.30); RED CELL DISTRIBUTION WIDTH 14.7 % (11.5-14.5); WHITE BLOOD COUNT 7.9 K/mm3 (4.8-10.8)
[2023-12-19 10:10] LABS: ALBUMIN 3.6 g/dL (3.4-4.8); SODIUM 123 mmol/L (136-145)
[2023-12-19 10:11] LABS: CALCIUM 8.4 mg/dL (8.3-10.5)
[2023-12-19 10:12] LABS: GLUCOSE 246 mg/dL (65-105)
[2023-12-19 10:14] LABS: TOTAL BILIRUBIN 0.5 mg/dL (0.2-1.2)
[2023-12-19 10:17] LABS: PLATELET COUNT 197 K/mm3 (130-400)
[2023-12-19 10:18] LABS: AST-SGOT 19 U/L (5-34)
[2023-12-19 10:19] LABS: ALT/SGPT 19 U/L (0-55)
[2023-12-19 10:29] LABS: CARBON DIOXIDE 15 mmol/L (23-31); TROPONIN-I < 0.030 ng/mL (0.00-0.033)
[2023-12-19 10:38] LABS: D-DIMER 0.81 mg/L FEU (0.15-0.50)
[2023-12-19] MEDS ORDERED: NS 1,000 ML IV SCH (10:45)
[2023-12-19] MEDS ORDERED: Iohexol 350 - 100 ML VIAL IV ONE (10:53)
[2023-12-19 10:58] LABS: PROTHROMBIN TIME 9.8 SECONDS (9.0-12.0)
[2023-12-19 15:15] VITALS: BP 128/78
== END 2023-12-19 15:30 | disposition short-term general hospital (02) ==
LOC: ED 09:17
PROVIDERS: Family Medicine
DX: J90 Pleural effusion, not elsewhere classified (principal); I48.91 Unspecified atrial fibrillation; E87.1 Hypo-osmolality and hyponatremia; I50.9 Heart failure, unspecified; Z79.899 Other long term (current) drug therapy
CPT/HCPCS: J7030; Q9967

== ENCOUNTER → 2024-02-17 | Outpatient (CLI) | payer BC ==
[2024-04-09 12:00] LABS: ALBUMIN 4.3 g/dL (3.4-4.8); CALCIUM 9.3 mg/dL (8.3-10.5); MAGNESIUM 1.57 mg/dL (1.60-2.60); TOTAL BILIRUBIN 0.5 mg/dL (0.2-1.2); TOTAL PROTEIN 7.3 g/dL (6.2-8.1)
[2024-04-09 12:09] LABS: BASO # 0.04 K/mm3 (0.02-0.10); EOS # 0.28 K/mm3 (0.04-0.40); EOS % 2.7 % (1.0-5.0); HEMATOCRIT 38.5 % (37.0-47.0); HEMOGLOBIN 12.5 g/dL (12.5-16.0); LYMPH# 4.43 K/mm3 (1.50-4.00); MEAN CELL VOLUME 78 fl (78-100); MEAN CORPUSCULAR HEMOGLOBIN 25 pg (27-31); MEAN CORPUSCULAR HGB CONC 33 g/dL (33-37); MEAN PLATELET VOLUME 11.7 fl (7.4-10.4); MONO # 0.57 K/mm3 (0.20-0.80); NEU # 5.13 K/mm3 (1.40-6.50); PLATELET COUNT 252 K/mm3 (130-400); RED BLOOD COUNT 4.95 M/mm3 (4.10-5.30); WHITE BLOOD COUNT 10.5 K/mm3 (4.8-10.8)
== END ==
LOC: LAB 09:48
PROVIDERS: Internal Medicine
DX: I10 Essential (primary) hypertension (principal)